=== PATIENT | male | born 1980 | race Caucasian/White ===

== ENCOUNTER 2019-08-06 17:22 | Emergency (ER) | payer SELFPAY ==
[~2019-08-06] VITALS: Ht 177.8 cm; Wt 68.0 kg
[2019-08-06 17:22] VITALS: BP 138/74
[2019-08-06] MEDS ORDERED: LIDOCAINE MPF 1% 10 MG/ML VIAL INJ ONE (17:30)
[2019-08-06 17:50] VITALS: BP 138/74
--- NOTE | 2019-08-06 17:50 | NUR ---
GUERRERO LEON FOR PREBOOK. SEEN AND CLEARED BY DR MANCIA. D/C IN CUSTODY WITH OFFICER.
== END 2019-08-06 17:50 ==
LOC: MED 17:22
DX: S01.01XA Laceration without foreign body of scalp, initial encounter (principal); Z02.89 Encounter for other administrative examinations; X58.XXXA Exposure to other specified factors, initial encounter; Y93.89 Activity, other specified; Y92.89 Other specified places as the place of occurrence of the external cause; Y99.8 Other external cause status
CPT/HCPCS: 12001; 99283; J2001